=== PATIENT | female | born 1960 | race Two or more races ===

== ENCOUNTER 2018-03-22 09:56 | Outpatient (CLI) | payer OTHER ==
[2018-03-22 10:29] LABS: BASOPHILS % (AUTO) 1.1 % (0.0-2.0); EOSINOPHILS # (AUTO) 0.1 K/uL (0.0-0.7); EOSINOPHILS % (AUTO) 2.6 % (0.0-7.0); HEMATOCRIT 43.3 % (31.2-41.9); HEMOGLOBIN 14.7 g/dL (10.9-14.3); LYMPHOCYTES # (AUTO) 1.5 K/uL (20.0-40.0); LYMPHOCYTES % (AUTO) 33.3 % (20.5-51.5); MEAN CORPUSCULAR HEMOGLOBIN 31.5 uug (24.7-32.8); MEAN CORPUSCULAR HGB CONC 34 g/dL (32.3-35.6); MEAN CORPUSCULAR VOLUME 92.6 fL (75.5-95.3); MONOCYTES # (AUTO) 0.3 K/uL (2.0-10.0); MONOCYTES % (AUTO) 7.6 % (0.0-11.0); NEUTROPHILS # (AUTO) 2.5 K/uL (1.8-8.9); NEUTROPHILS % (AUTO) 55.4 % (38.5-71.5); PLATELET COUNT (AUTO) 222 K/uL (179-408); RED BLOOD CELL COUNT(AUTO) 4.68 MIL/uL (3.63-4.92); WHITE BLOOD COUNT (AUTO) 4.5 K/uL (3.8-11.8)
[2018-03-22 10:35] LABS: CREATININE 0.9 mg/dL (0.6-1.3); POTASSIUM 4.8 mmol/L (3.5-5.1)
[2018-03-22 11:21] LABS: *BILIRUBIN,URIN NEGATIVE (NEGATIVE); *BLOOD, URINE NEGATIVE (NEGATIVE); *CLARITY,URINE CLEAR (CLEAR); *COLOR,URINE YELLOW (YELLOW); *KETONES,URINE NEGATIVE (NEGATIVE); *PROTEIN,URINE NEGATIVE (NEGATIVE); *UROBILINOGEN,URINE 0.2 E.U./dl (NORMAL); LEUKOCYTE ESTERASE ,URINE NEGATIVE (NEGATIVE); NITRITE, URINE NEGATIVE (NEGATIVE); PH,URINE 5.5 (5.0-8.0); UGLUCOSE NEGATIVE (NEGATIVE)
== END 2018-03-22 23:59 | disposition home or self-care (01) ==
LOC: RAD 09:56
PROVIDERS: ATTEND Internal Medicine
DX: Z01.818 Encounter for other preprocedural examination (principal); M65.341 Trigger finger, right ring finger
CPT/HCPCS: 36415; 85025; A4663

== ENCOUNTER 2018-03-25 06:34 | Day surgery (SDC) | payer OTHER ==
[2018-03-25] MEDS ORDERED: LIDOCAINE HCL 2% 20 ML VIAL MC ONE (06:35)
[2018-03-25] MEDS ORDERED: DEXAMETHASONE SOD PHOSPHATE 4 MG INJ IV ONE (06:35)
[2018-03-25] MEDS ORDERED: CEFAZOLIN 1 G VIAL MC ONE (06:35)
[2018-03-25] MEDS ORDERED: EPHEDRINE SULFATE 50 MG/ML AMPUL MC ONE (06:35)
[2018-03-25] MEDS ORDERED: ONDANSETRON 4 MG/2 ML VIAL IV ONE (06:35)
[2018-03-25] MEDS ORDERED: IV LACTATED RINGERS SOLUTION 1,000 ML BAG IV ONE (06:35)
[2018-03-25] MEDS ORDERED: PROPOFOL 200 MG/20 ML BOTTLE IV ONE (06:35)
[2018-03-25] MEDS ORDERED: SEVOFLURANE 250 ML BOTTLE IH ONE (06:35)
[2018-03-25] MEDS ORDERED: POLYMYXIN B SULFATE 500,000 UNITS, BACITRACIN 50,000 UNITS, NORMAL SALINE 20 ML MC ONE ×3 (07:30)
[2018-03-25] MEDS ORDERED: LIDOCAINE 0.5% MPF 50 ML VIAL ONE (07:49)
[2018-03-25] MEDS ORDERED: FENTANYL CITRATE 100 MCG/2 ML AMPUL ONE (08:25)
[2018-03-25] MEDS ORDERED: BUPIVACAINE 0.25% 30 ML VIAL ONE (08:31)
== END 2018-03-25 11:30 | disposition home or self-care (01) ==
LOC: DS 06:34
PROVIDERS: ATTEND Orthopaedic Surgery
DX: M65.841 Other synovitis and tenosynovitis, right hand (principal); M19.90 Unspecified osteoarthritis, unspecified site; Z88.8 Allergy status to other drugs, medicaments and biological substances; E66.9 Obesity, unspecified; F32.9 Major depressive disorder, single episode, unspecified; E07.9 Disorder of thyroid, unspecified; Z79.899 Other long term (current) drug therapy; Z98.890 Other specified postprocedural states
CPT/HCPCS: 26055; J0690; J1100; J2405; J3010; J3490 ×6; J7120 ×2; A4649